=== PATIENT | female | born 1985 | race Caucasian/White ===

== ENCOUNTER 2021-05-04 17:25 | Emergency (ER) | payer MEDICAID, OTHER ==
[~2021-05-04] VITALS: Ht 152.4 cm; Wt 80.0 kg
[~2021-05-04 17:25] MED LIST: birth control
[2021-05-04 18:08] VITALS: BP 110/71
[2021-05-04] MEDS ORDERED: LIDOCAINE HCL 1% 20ML VIAL (Pyxis) INJ INFIL ONE (20:30)
[2021-05-04] MEDS ORDERED: LIDOCAINE HCL 1% 10 MG/ML 10ML VIAL INJ NR (20:45)
[2021-05-04 21:05] LABS: CLARITY URINE CLEAR (CLEAR); COLOR URINE DARK YELLOW (YELLOW); KETONES URINE NEGATIVE (NEGATIVE); LEUKOCYTE ESTERASE URINE TRACE (NEGATIVE); NITRITE URINE POSITIVE (NEGATIVE); OCCULT BLOOD URINE 1+ (NEGATIVE); PROTEIN URINE NEGATIVE (NEGATIVE); SPECIFIC GRAVITY URINE 1.013 (1.005-1.030)
[2021-05-04] MEDS ORDERED: CEFI400C MT (22:13)
[2021-05-04] MEDS ORDERED: CLIN300C12 MT (22:13)
== END 2021-05-04 22:24 | disposition home or self-care (01) ==
LOC: ER 17:25
DX: N75.0 Cyst of Bartholin's gland (principal); N39.0 Urinary tract infection, site not specified; F41.9 Anxiety disorder, unspecified
CPT/HCPCS: 56420; 81003; 99283; J3490

== ENCOUNTER 2022-05-05 22:59 | Emergency (ER) | payer SELFPAY ==
[~2022-05-05] VITALS: Ht 139.7 cm; Wt 59.0 kg
[~2022-05-05 22:59] MED LIST changes: +CEFI400C MT; +CLIN-194 MT
[2022-05-06] MEDS ORDERED: MAGNESIUM/ALUMINUM HYDROXIDE/SIMETHICONE 30ML UDC PO STA (00:04)
[2022-05-06] MEDS ORDERED: ACETAMINOPHEN 325MG TABLET PO STA (00:04)
[2022-05-06 00:54] LABS: CHLORIDE 105 mEq/L (98-107)
[2022-05-06 01:13] LABS: BASOPHILS % 0.9 % (0.0-2.0); EOSINOPHILS % 1.6 % (0.0-5.0); HEMATOCRIT. 35.9 % (36.0-48.0); HEMOGLOBIN. 11.9 g/dL (12.0-16.0); LYMPHOCYTES % 38.5 % (20.0-50.0); MEAN CORPUSCULAR HEMOGLOBIN 27.6 pg (28.0-32.0); MEAN CORPUSCULAR VOLUME 83.3 fL (81.0-99.0); MONOCYTES % 8.8 % (2.0-8.0); NEUTROPHILS % 50.2 % (40.0-76.0); PLATELET 344 x1000/uL (130-400); RED BLOOD CELL COUNT 4.31 mill/uL (4.2-5.4); RED CELL DISTRIBUTION WIDTH 14.6 % (11.6-14.6)
[2022-05-06 01:14] LABS: HCG SCREEN NEGATIVE
[2022-05-06 01:25] LABS: CLARITY URINE CLOUDY (CLEAR); COLOR URINE YELLOW (YELLOW); KETONES URINE TRACE (NEGATIVE); LEUKOCYTE ESTERASE URINE TRACE (NEGATIVE); NITRITE URINE POSITIVE (NEGATIVE); OCCULT BLOOD URINE TRACE (NEGATIVE); PH URINE 6.5 (4.5-8.0); PROTEIN URINE NEGATIVE (NEGATIVE); SPECIFIC GRAVITY URINE 1.021 (1.005-1.030); UROBILINOGEN URINE 0.2 E.U./dL (0.2-1.0)
[2022-05-06] MEDS ORDERED: SULFAMETHOXAZOLE/TRIMETHOPRIM 800/160MG TABLET PO ONE (01:30)
[2022-05-06] MEDS ORDERED: ACET-2708 MT (01:35)
[2022-05-06] MEDS ORDERED: SULF1TAB48 MT (01:35)
[2022-05-06] MEDS ORDERED: KETOROLAC 30MG/ML VIAL IM ONE (01:45)
[2022-05-06 02:10] VITALS: BP 126/79
== END 2022-05-06 02:10 | disposition home or self-care (01) ==
LOC: ER 22:59
DX: N39.0 Urinary tract infection, site not specified (principal); R10.13 Epigastric pain; F41.9 Anxiety disorder, unspecified; Z87.19 Personal history of other diseases of the digestive system; Z90.49 Acquired absence of other specified parts of digestive tract
CPT/HCPCS: 36415; 76705; 80053; 81003; 83690; 84703; 85025; 96372; 99285; J1885; Z7610

== ENCOUNTER 2023-03-04 22:22 | Emergency (ER) | payer SELFPAY ==
[~2023-03-04] VITALS: Ht 144.8 cm; Wt 53.0 kg
[~2023-03-04 22:22] MED LIST changes: +ACET-2708 MT; +SULF1TAB48 MT
[2023-03-04 22:57] VITALS: BP 130/74; PULSE 78; RESP 17; TEMP 99.1; O2SAT 99
[2023-03-04] MEDS ORDERED: METHOCARBAMOL 500MG TABLET PO ONE (23:45)
[2023-03-04] MEDS ORDERED: IBUPROFEN 600MG TABLET PO ONE (23:45)
[2023-03-05] MEDS ORDERED: IBUP-2029 MT (00:16)
[2023-03-05] MEDS ORDERED: METHOCARBAMOL 500MG TABLET PO NR (01:45)
[2023-03-05] MEDS ORDERED: IBUPROFEN 600MG TABLET PO NR (01:45)
== END 2023-03-05 03:17 | disposition home or self-care (01) ==
LOC: ER 22:22
DX: S29.011A Strain of muscle and tendon of front wall of thorax, initial encounter (principal); F41.9 Anxiety disorder, unspecified; Z90.49 Acquired absence of other specified parts of digestive tract; X58.XXXA Exposure to other specified factors, initial encounter; Y93.89 Activity, other specified; Y92.89 Other specified places as the place of occurrence of the external cause; Y99.8 Other external cause status
CPT/HCPCS: 71045; 99283

== ENCOUNTER 2024-05-11 00:23 | Emergency (ER) | payer MEDICAID ==
[~2024-05-11] VITALS: Ht 144.8 cm; Wt 54.0 kg
[~2024-05-11 00:23] MED LIST changes: +IBUP-2029 MT
[2024-05-11 00:58] VITALS: O2SAT 100
[2024-05-11 01:00] VITALS: BP 125/58; PULSE 73; RESP 19; TEMP 36.7; O2SAT 100
[2024-05-11] MEDS ORDERED: ACET-2708 MT (03:03)
== END 2024-05-11 03:22 | disposition home or self-care (01) ==
LOC: ER 00:23
DX: S60.511A Abrasion of right hand, initial encounter (principal); F41.9 Anxiety disorder, unspecified; Z79.899 Other long term (current) drug therapy; Z90.49 Acquired absence of other specified parts of digestive tract; Z98.890 Other specified postprocedural states; W23.1XXA Caught, crushed, jammed, or pinched between stationary objects, initial encounter; Y93.89 Activity, other specified; Y92.89 Other specified places as the place of occurrence of the external cause; Y99.8 Other external cause status
CPT/HCPCS: 73090; 73130; 99284

== ENCOUNTER 2024-12-14 22:44 | Emergency (ER) | payer MEDICAID ==
[~2024-12-14] VITALS: Ht 141 cm; Wt 55.4 kg
[~2024-12-14 22:44] MED LIST changes: +IBUP-1455 MT; -IBUP-2029 MT
[2024-12-14 23:16] VITALS: O2SAT 99
[2024-12-14 23:38] LABS: CLARITY URINE CLOUDY (CLEAR); COLOR URINE YELLOW (YELLOW); GLUCOSE URINE NEGATIVE (NEGATIVE); KETONES URINE TRACE (NEGATIVE); LEUKOCYTE ESTERASE URINE 2+ (NEGATIVE); NITRITE URINE NEGATIVE (NEGATIVE); OCCULT BLOOD URINE 1+ (NEGATIVE); PH URINE 6.0 (4.5-8.0); PROTEIN URINE NEGATIVE (NEGATIVE); SPECIFIC GRAVITY URINE 1.024 (1.005-1.030); UROBILINOGEN URINE 0.2 E.U./dL (0.2-1.0)
[2024-12-15 00:12] LABS: BACTERIA URINE TRACE; CALCIUM OXALATE CRYSTALS URINE 2+ /lpf; SQUAMOUS EPITHELIAL CELL URINE 2+ /lpf (RARE/1+)
[2024-12-15 01:09] LABS: BASOPHILS % 1.6 % (0.0-2.0); EOSINOPHILS % 0.5 % (0.0-5.0); HEMATOCRIT. 36.6 % (36.0-48.0); HEMOGLOBIN. 11.6 g/dL (12.0-16.0); LYMPHOCYTES % 27.5 % (20.0-50.0); MEAN PLATELET VOLUME 8.7 fl (7.4-10.4); MONOCYTES % 9.5 % (2.0-8.0); NEUTROPHILS % 60.9 % (40.0-76.0); PLATELET 328 x1000/uL (130-400); RED BLOOD CELL COUNT 4.70 mill/uL (4.2-5.4); RED CELL DISTRIBUTION WIDTH 17.0 % (11.6-14.6)
[2024-12-15] MEDS ORDERED: CEFP200T14 MT (01:12)
[2024-12-15 01:27] LABS: HCG SCREEN POSITIVE
[2024-12-15 01:29] LABS: CREATININE 0.5 mg/dL (0.6-1.0); UREA NITROGEN BLOOD < 5 mg/dL (9-23)
[2024-12-15 01:51] VITALS: BP 108/52; PULSE 78; RESP 11; TEMP 36.9; O2SAT 98
== END 2024-12-15 01:51 | disposition home or self-care (01) ==
LOC: ER 22:44
DX: O20.0 Threatened abortion (principal); O23.41 Unspecified infection of urinary tract in pregnancy, first trimester; Z3A.01 Less than 8 weeks gestation of pregnancy; Z90.49 Acquired absence of other specified parts of digestive tract
CPT/HCPCS: 36415; 76801; 80048; 81003; 81025; 84702; 84703; 85025; 86850; 86900; 99284

== ENCOUNTER 2025-01-15 22:12 | Emergency (ER) | payer MEDICAID ==
[~2025-01-15] VITALS: Ht 127 cm; Wt 56.4 kg
[~2025-01-15 22:12] MED LIST changes: +CEFP200T14 MT
[2025-01-15 22:16] VITALS: TEMP 36.6; O2SAT 100
[2025-01-15 22:55] LABS: BASOPHILS % 0.6 % (0.0-2.0); EOSINOPHILS % 2.1 % (0.0-5.0); HEMATOCRIT. 37.1 % (36.0-48.0); HEMOGLOBIN. 11.9 g/dL (12.0-16.0); LYMPHOCYTES % 41.0 % (20.0-50.0); MEAN PLATELET VOLUME 8.7 fl (7.4-10.4); MONOCYTES % 11.0 % (2.0-8.0); NEUTROPHILS % 45.3 % (40.0-76.0); PLATELET 275 x1000/uL (130-400); RED BLOOD CELL COUNT 4.52 mill/uL (4.2-5.4); RED CELL DISTRIBUTION WIDTH 19.8 % (11.6-14.6)
[2025-01-15 23:07] LABS: HCG SCREEN POSITIVE
[2025-01-15 23:16] LABS: CREATININE 0.6 mg/dL (0.6-1.0)
[2025-01-15 23:17] LABS: UREA NITROGEN BLOOD 6 mg/dL (9-23)
[2025-01-15 23:54] VITALS: TEMP 98.4
[2025-01-15] MEDS: ACETAMINOPHEN 325MG TABLET PO ONE (23:54)
[2025-01-15 23:57] LABS: B-HCG QUANTITATIVE 8911 mIU/mL (<6)
[2025-01-16] MEDS: ONDANSETRON HCL 4MG/2ML INJ IV ONE (00:13)
[2025-01-16 01:31] LABS: CLARITY URINE CLEAR (CLEAR); COLOR URINE YELLOW (YELLOW); GLUCOSE URINE NEGATIVE (NEGATIVE); KETONES URINE NEGATIVE (NEGATIVE); NITRITE URINE NEGATIVE (NEGATIVE); OCCULT BLOOD URINE 2+ (NEGATIVE); PH URINE 6.0 (4.5-8.0); PROTEIN URINE NEGATIVE (NEGATIVE); SPECIFIC GRAVITY URINE 1.007 (1.005-1.030)
[2025-01-16 01:32] LABS: LEUKOCYTE ESTERASE URINE NEGATIVE (NEGATIVE); UROBILINOGEN URINE 0.2 E.U./dL (0.2-1.0)
[2025-01-16 01:33] LABS: BACTERIA URINE TRACE; SQUAMOUS EPITHELIAL CELL URINE FEW /lpf (RARE/1+); WBC URINE 0-2 /hpf (0-2)
[2025-01-16 02:11] VITALS: BP 113/71; PULSE 62; RESP 22; O2SAT 99
== END 2025-01-16 02:28 | disposition home or self-care (01) ==
LOC: ER 22:12
DX: O26.891 Other specified pregnancy related conditions, first trimester (principal); R10.9 Unspecified abdominal pain; R10.20 Pelvic and perineal pain unspecified side; N93.9 Abnormal uterine and vaginal bleeding, unspecified; Z79.3 Long term (current) use of hormonal contraceptives; Z90.49 Acquired absence of other specified parts of digestive tract; Z3A.10 10 weeks gestation of pregnancy
CPT/HCPCS: 99285; 96374; 76801; 80048; 81025; 84703; 84702; 85025; 86850; 86900; 86901; 36415; 76817; 81003; J2405